=== PATIENT | male | born 1930 ===

== ENCOUNTER → 2017-01-24 | Day surgery (SDC) | payer MEDICARE, BC ==
[~2017-01-24] VITALS: Ht 188 cm; Wt 73.3 kg
[~2017-01-24] MED LIST: ALTACE2.5 MG PO; ANTIVERT12.5 MG PO; ARTIFICIAL TEAR15 ML OPHTH; ASPIRIN (CHILDR81 MG PO; ASPIRIN LO-DOSE81 MG PO; ATIVAN 0.5MG0.5 MG PO; ATIVAN 1 MG1 MG PO; BENADRYL12.5 MG/5 PO; BETAPACE (GENER80 MG PO; COLACE100 MG PO; DRISDOL 5050000 UNIT PO; DULCOLAX10 MG R; FLOMAX0.4 MG PO; LEVOTHROID (SY50 MCG PO; LOPRESSOR25 MG PO; MEVACOR20 MG PO; MIDODRINE HCL10 MG PO; MIDODRINE HCL5 MG PO; MILK OF MA400 MG/5 M PO; MIRALAX17 GM PO; NITROSTAT0.4 MG PO; NITROSTAT0.4 MG SL; NUCYNTA75 MG PO; OCEAN NASAL) (A44 ML NOSE; OSCAL + D500 MG PO; POLYETHYLENE GL17 GM PO; PROPAFENONE HC150 MG PO; PROPAFENONE HC225 MG PO; RAMIPRIL2.5 MG PO; REMERON15 MG PO; RYTHMOL150 MG PO; TYLENOL EXTRA500 MG PO; TYLENOL325 MG PO; ULTRAM50 MG PO; XARELTO20 MG PO; ZESTRIL2.5 MG PO; [UNRECOGNIZED DRUG - OTHER] PO
--- NOTE | ~2017-01-24 | OR ---
PATIENT'S NAME: GHANSHYAM FUENTES [facility] AGE: 86 Y [address] ROOM: [place] [address] LOCATION: [facility] ADMIT DATE: 01/24/2017 OR/Procedure Report DISCHARGE DATE: FAMILY PHYSICIAN: NATALIYA CLARKE MD ATTENDING PHYSICIAN: TAO NULL SURGEON: Tao Null DO [employer]: DATE OF PROCEDURE: 01/24/2017 PREOPERATIVE DIAGNOSIS: Delayed union, left femur fracture, status post periprosthetic fracture to a short cephalomedullary nail with exchange nailing using a long cephalomedullary nail locked distally, static. He has had the most proximal screw distally at the knee distal femur beginning loosening and backing out. We recommended dynamization of the nail to enhance healing and remove pain over the lateral knee. We also plan left knee injection due to osteoarthritis. POSTOPERATIVE DIAGNOSES: 1. Delayed union, left femur fracture, with hardware backing out. 2. Degenerative joint disease, left knee. PROCEDURES PERFORMED: 1. Dynamization of the divya with removal of the 2 distal screws. 2. Injection, left knee. ANTIBIOTICS: 2 g IV Ancef. ANESTHESIA: Local, MAC, with 30 mL of local 0.5% Marcaine with epinephrine at the incision site. DESCRIPTION OF PROCEDURE: Time-out confirmed the operative site, preop antibiotics. The patient is well aware of the risks, benefits, and potential complications to include infection, hardware loosening, breakage, loss of fracture fixation, repeat fractures, leg-length discrepancy, potential need for multiple surgeries, bleeding, neurovascular injury, and infection. Having been well informed of the treatment options, risks, benefits, and potential complications including anaphylactic reaction or from complications, the patient had been appropriately placed with well-padded bony extremities. He was prepped and draped in the usual fashion. Time-out confirmed the operative site. Using the old incision, a 1 inch incision was made at the distal femur laterally. Dissection down, and hemostasis achieved with Bovie cautery. The screws were located and removed. I injected 30 mL of 0.5% Marcaine with epi at the incision site. Hemostasis was achieved. Deep layer was closed with #1 Vicryl in [id number] pattern, followed by subcuticular Monocryl, followed by Dermabond and Steri-Strips. I injected the left knee using suprapatellar PATIENT'S NAME: GHANSHYAM FUENTES [facility] AGE: 86 Y [address] ROOM: [place] [address] LOCATION: [facility] [place] ADMIT DATE: 01/24/2017 OR/Procedure Report DISCHARGE DATE: FAMILY PHYSICIAN: NATALIYA CLARKE MD ATTENDING PHYSICIAN: TAO NULL lateral approach with a cocktail of local and steroid. The patient tolerated well without complications. He will be allowed weightbearing as tolerated as long as he has no pain. He will continue to use a walker for short distances and a wheelchair for long distances. I want to see him back in office in 2 weeks. He can resume all home medications including Xarelto in the a.m. with his history of DVT. Sponge and needle counts were reported as correct x3. COMPLICATIONS: None. TAO NULL DO PH/anthonyl /[id number] d: 01/24/17 1325 t: 02/02/17 1121, OPERATIVE SUMMARY
== END | disposition disaster alternative care site (69) ==
LOC: GPOC 01-17 10:00 → GSDC 07:00
PROC: 0YPB0JZ Removal of Synthetic Substitute from Left Lower Extremity, Open Approach (ICD-10-PCS; principal; 2017-01-24)
PROC: 3E0U33Z Introduction of Anti-inflammatory into Joints, Percutaneous Approach (ICD-10-PCS; 2017-01-24)
DX: S72.302 Unspecified fracture of shaft of left femur (principal); M17.12 Unilateral primary osteoarthritis, left knee; I25.10 Atherosclerotic heart disease of native coronary artery without angina pectoris; I10 Essential (primary) hypertension; I48.0 Paroxysmal atrial fibrillation; Z87.891 Personal history of nicotine dependence; Z88.2 Allergy status to sulfonamides; Z88.5 Allergy status to narcotic agent; Z90.49 Acquired absence of other specified parts of digestive tract; Z98.890 Other specified postprocedural states; Z79.82 Long term (current) use of aspirin; Z79.899 Other long term (current) drug therapy
CPT/HCPCS: J0690; J1030; J3301; J7120